=== PATIENT | female | born 1980 | race Caucasian/White ===

== ENCOUNTER → 2016-06-19 | Outpatient (REF) ==
[~2016-06-19] MED LIST: ANUSOL-HC SUPPO25 MG RC; BIOTIN10000 MCG PO; CARAFATE 1GM1 G PO; CLOTRIMAZOLE 1010 ML TP; COLACE 100100 MG/CAP PO; LEVSIN 0.10.125 MG/T PO; LORTAB 5/500 501 TAB PO; MASON NATURAL1200 MG PO; NAPROSYN500 MG PO; NUVARING VAG RING VG; PRILOSEC 20MG20 MG PO; TYLENOL 500MG500 MG PO; VALIUM 2MG T2 MG/TAB PO; VALTREX1 GM PO; YAZ 28 3 MG-0.01 TAB PO; ZOFRAN 4MG T4 MG/TAB PO; ZOLOFT 50MG50 MG PO
== END ==
LOC: WSOH 12:00
DX: Z11.1 Encounter for screening for respiratory tuberculosis (principal)

== ENCOUNTER → 2016-06-29 | Outpatient (REF) | LOC: WSOH 15:30 | DX: Z11.1 Encounter for screening for respiratory tuberculosis (principal) ==

== ENCOUNTER → 2016-11-25 | Outpatient (REF) | LOC: WSOH 16:00 | DX: Z02.89 Encounter for other administrative examinations (principal) ==

== ENCOUNTER → 2018-10-14 | Outpatient (CLI) | payer BC | LOC: BHSO 09:51 | DX: F90.0 Attention-deficit hyperactivity disorder, predominantly inattentive type (principal) ==

== ENCOUNTER → 2018-11-18 | Outpatient (CLI) | payer BC | LOC: BHSO 08:39 | DX: F90.0 Attention-deficit hyperactivity disorder, predominantly inattentive type (principal) | CPT/HCPCS: G0463 ==

== ENCOUNTER → 2019-01-20 | Outpatient (CLI) | payer BC | LOC: BHSO 13:28 | DX: F90.0 Attention-deficit hyperactivity disorder, predominantly inattentive type (principal) | CPT/HCPCS: G0463 ==

== ENCOUNTER → 2020-01-01 | Outpatient (CLI) | payer BC | LOC: BHSO 08:45 | DX: F90.0 Attention-deficit hyperactivity disorder, predominantly inattentive type (principal) | CPT/HCPCS: G0463 ==

== ENCOUNTER 2020-03-06 05:47 | Day surgery (SDC) | payer OTHER ==
[~2020-03-06] VITALS: Ht 160 cm; Wt 72.6 kg
[2020-03-06] MEDS ORDERED: NORVASC 5MG5 MG/TAB PO (06:12)
[2020-03-06] MEDS ORDERED: VYVANSE50 MG PO (06:12)
[2020-03-06] MEDS ORDERED: ZOLOFT 100MG100 MG PO (06:12)
[2020-03-06] MEDS ORDERED: CLARITIN 1010 MG/TAB PO (06:13)
[2020-03-06 07:51] VITALS: BP 112/72; PULSE 87; TEMP 97.6
--- NOTE | 2020-03-06 07:51 | NUR ---
The patient arrived back to [facility] from the operating room at this time. The patient appears drowsy but arouses easily to her name. The patient denies any pain or nausea at this time. The patient has dressings to her right and left wrists that appear clean, dry and intact. Post operative vital signs were started at this time. Call light is within reach. The patient denies wanting anything to eat or drink at this time. Will continue to monitor the patient.
[2020-03-06 08:06] VITALS: BP 102/64; PULSE 80
--- NOTE | 2020-03-06 08:06 | NUR ---
The patient appears to be resting comfortably on the cart. Respirations even and unlabored. Vital signs appear stable. Will continue to monitor the patient.
[2020-03-06] MEDS ORDERED: MOBIC15 MG PO (08:11)
[2020-03-06] MEDS ORDERED: COLACE 100100 MG/CAP PO (08:11)
[2020-03-06] MEDS ORDERED: NORCO 325 MG-51 TAB PO (08:11)
[2020-03-06] MEDS ORDERED: ZOFRAN 4MG T4 MG/TAB PO (08:12)
[2020-03-06 08:21] VITALS: BP 109/71; PULSE 84
--- NOTE | 2020-03-06 08:21 | NUR ---
The patient appears more alert at this time. She agrees to try some water and appeared to tolerate it well. The patient voices a desire to be discharged home. Her was called and said he would arrive in about 20 minutes to the ER entrance.
--- NOTE | 2020-03-06 08:30 | NUR ---
Discharge instructions were reviewed with the patient at this time. She verbalized understanding and has no questions for the nurse at this time. The patient's IV to her right anecubital was removed and a pressure dressing was applied to the site. The nurse instructed the patient to finish geting dressed and notify the staff when she is ready to be escorted out.
--- NOTE | 2020-03-06 08:40 | NUR ---
The patient was escorted out via wheelchair to a private vehicle by JORGE L Hernandez. The patient's belongings and discharge paperwork were sent with her. The patient's is present to drive her home.
== END 2020-03-06 08:40 | disposition home or self-care (01) ==
LOC: SDCO 05:47
DX: G56.03 Carpal tunnel syndrome, bilateral upper limbs (principal); F32.9 Major depressive disorder, single episode, unspecified; K21.9 Gastro-esophageal reflux disease without esophagitis; Z87.891 Personal history of nicotine dependence; Z79.82 Long term (current) use of aspirin; Z88.0 Allergy status to penicillin; Z88.1 Allergy status to other antibiotic agents; F41.9 Anxiety disorder, unspecified
CPT/HCPCS: J0690; J2250; J2704; J3010; J7120

== ENCOUNTER → 2020-10-20 | Outpatient (CLI) | payer OTHER ==
[~2020-10-20] MED LIST changes: +ALLEGRA 180MG180 MG PO; +ASPIRIN 81M81 MG/TA2 PO; +BENICAR 20MG TA20 MG PO; +CLARITIN 1010 MG/TAB PO; +FLORAJEN A20 Billion PO; +MOBIC15 MG PO; +NORCO 325 MG-51 TAB PO; +NORVASC 10MG10 MG PO; +NORVASC 5MG5 MG/TAB PO; +OMEGA-3 1000 MG1 CAP PO; +ONE-A-DAY ESSE1 EACH PO; +SINGULAIR 110 MG/TAB PO; +VYVANSE50 MG PO; +WELLBUTRIN SR150 M1 PO; +ZOLOFT 100MG100 MG PO
[2020-10-20 11:18] LABS: BASO % 0.3 % (0.0-2.0); EOS # 0.1 (0.0-0.7); EOS % 1.5 % (0-4.0); GRAN # 5.5 (1.4-6.5); GRAN % 77.4 % (42.2-75.2); HEMATOCRIT 42.2 % (37.0-47.0); HEMOGLOBIN 14.1 g/dl (12.5-16.0); LYMPH % 13.8 % (20.0-51.0); MEAN CELL VOLUME 93 fl (80.0-100.0); MEAN CORPUSCULAR HEMOGLOBIN 31 pg (27.0-31.0); MEAN CORPUSCULAR HGB CONC 33 g/dl (33.0-37.0); MEAN PLATELET VOLUME 8.9 fl (7.4-10.4); MONO # 0.5 (0.1-0.6); MONO % 6.7 % (1.7-9.3); PLATELET COUNT 289 K/mm3 (130-400); RED BLOOD COUNT 4.55 M/mm3 (4.10-5.30); REDCELL DISTRIBUTION WIDTH-CV 14.6 % (11.5-14.5)
[2020-10-20 11:27] LABS: ALBUMIN 4.1 gm/dL (3.5-5.0); BILIRUBIN,TOTAL 0.3 mg/dL (0.0-1.0); CALCIUM 8.7 mg/dL (8.4-10.2); CREATININE, serum 0.89 (0.52-1.25); POTASSIUM 4.2 mmol/L (3.4-5.0); TOTAL PROTEIN 7.5 gm/dL (6.4-8.2)
== END ==
LOC: COL.LAB 10:47
PROVIDERS: Physician Assistant
DX: R10.84 Generalized abdominal pain (principal)

== ENCOUNTER 2020-12-20 06:29 | Day surgery (SDC) | payer OTHER ==
[~2020-12-20] VITALS: Ht 160 cm; Wt 65.8 kg
[~2020-12-20 06:29] MED LIST changes: -ALLEGRA 180MG180 MG PO; -ASPIRIN 81M81 MG/TA2 PO; -BENICAR 20MG TA20 MG PO; -FLORAJEN A20 Billion PO; -NORVASC 10MG10 MG PO; -OMEGA-3 1000 MG1 CAP PO; -ONE-A-DAY ESSE1 EACH PO; -SINGULAIR 110 MG/TAB PO; -WELLBUTRIN SR150 M1 PO
[2020-12-20] MEDS ORDERED: BENICAR 20MG TA20 MG PO (06:46)
[2020-12-20] MEDS ORDERED: NORVASC 10MG10 MG PO (06:46)
[2020-12-20] MEDS ORDERED: ASPIRIN 81M81 MG/TA2 PO (06:46)
[2020-12-20] MEDS ORDERED: WELLBUTRIN SR150 M1 PO (06:47)
[2020-12-20] MEDS ORDERED: SINGULAIR 110 MG/TAB PO (06:47)
[2020-12-20] MEDS ORDERED: ZOLOFT 100MG100 MG PO (06:47)
[2020-12-20] MEDS ORDERED: VALTREX1 GM PO (06:48)
[2020-12-20] MEDS ORDERED: OMEGA-3 1000 MG1 CAP PO (06:48)
[2020-12-20] MEDS ORDERED: ZOFRAN 4MG T4 MG/TAB PO (06:48)
[2020-12-20] MEDS ORDERED: FLORAJEN A20 Billion PO (06:49)
[2020-12-20] MEDS ORDERED: ONE-A-DAY ESSE1 EACH PO (06:49)
[2020-12-20] MEDS ORDERED: VYVANSE50 MG PO (06:50)
[2020-12-20] MEDS ORDERED: ALLEGRA 180MG180 MG PO (06:50)
[2020-12-20] MEDS ORDERED: NUVARING VAG RING VG (06:50)
[2020-12-20 06:51] VITALS: BP 101/79; PULSE 93; TEMP 97.9
[2020-12-20 08:40] VITALS: BP 119/90; PULSE 76; TEMP 97.4
[2020-12-20 08:55] VITALS: BP 95/71; PULSE 78
[2020-12-20 09:10] VITALS: BP 97/61; PULSE 70
--- NOTE | 2020-12-20 09:30 | NUR ---
0840- Pt returns from endo procedure via cart and RN assist to [facility]. Pt ambulates from cart to recliner with RN assist. Monitors on and alarms set. Call light within reach. Pt alert and oriented. Pt requests water, pudding and crackers. Pt denies any pain or nausea. 0855 - Pt taking food and drink well. No complications noted. 0910 - Discharge instructions given to pt. All questions answered to patient's satisfaction, verbalized understanding. Handed to pt are a thank you card and discharge information. 0930 - Pt transferred out of the hospital via wheelchair to private vehicle driven by .
== END 2020-12-20 09:30 | disposition home or self-care (01) ==
LOC: SDCO 06:29
DX: K29.50 Unspecified chronic gastritis without bleeding (principal); K59.00 Constipation, unspecified; K62.89 Other specified diseases of anus and rectum; R63.0 Anorexia; K64.0 First degree hemorrhoids; I10 Essential (primary) hypertension; F32.9 Major depressive disorder, single episode, unspecified; F41.9 Anxiety disorder, unspecified; F90.9 Attention-deficit hyperactivity disorder, unspecified type; Z79.899 Other long term (current) drug therapy; Z20.822 Contact with and (suspected) exposure to COVID-19; Z79.82 Long term (current) use of aspirin
CPT/HCPCS: J2704; J7030

== ENCOUNTER → 2021-04-21 | Outpatient (CLI) | payer OTHER ==
[~2021-04-21] MED LIST changes: +ALLEGRA 180MG180 MG PO; +ASPIRIN 81M81 MG/TA2 PO; +BENICAR 20MG TA20 MG PO; +FLORAJEN A20 Billion PO; +NORVASC 10MG10 MG PO; +OMEGA-3 1000 MG1 CAP PO; +ONE-A-DAY ESSE1 EACH PO; +SINGULAIR 110 MG/TAB PO; +WELLBUTRIN SR150 M1 PO
== END ==
LOC: MC.RAD 02-04 08:00
DX: Z12.31 Encounter for screening mammogram for malignant neoplasm of breast (principal); Z80.3 Family history of malignant neoplasm of breast